=== PATIENT | female | born 1960 | race Caucasian/White ===

== ENCOUNTER 2020-05-16 08:10 | Outpatient (REF) | payer OTHER, SELFPAY ==
[2020-05-16 11:58] LABS: Alanine Aminotransferase 12 U/L (0-31); Anion Gap 15 (12-20); Blood Urea Nitrogen 11 mg/dL (9-16); Calcium 9.2 mg/dL (8.4-10.2); Carbon Dioxide 28 mmol/L (22-29); Chloride 103 mmol/L (96-108); Cholesterol 233 mg/dL; Estimated Glomerular Filt Rate > 60; Glucose Fasting 102 mg/dL (60-99); HDL Cholesterol 61 mg/dL; LDL Cholesterol Calculated 144 mg/dl; Sodium 142 mmol/L (135-145); Triglycerides 143 mg/dL
[2020-05-16 12:23] LABS: Aspartate Amino Transferase 20 U/L (5-31); Vitamin D 25-OH Total 56.5 ng/mL (>30)
== END 2020-05-16 08:11 | disposition home or self-care (01) ==
LOC: HO.HMGCLDS 08:10
PROVIDERS: PCP Internal Medicine; Visit Provider Internal Medicine
DX: E78.5 Hyperlipidemia, unspecified (principal); I10 Essential (primary) hypertension; Z78.0 Asymptomatic menopausal state
CPT/HCPCS: 36415; 80048; 80061; 82306; 84450; 84460

== ENCOUNTER 2020-08-22 09:51 | Outpatient (REF) | payer OTHER, SELFPAY ==
[2020-08-22 12:07] LABS: Alanine Aminotransferase 9 U/L (0-31); Anion Gap 11 (12-20); Aspartate Amino Transferase 18 U/L (5-31); Blood Urea Nitrogen 10 mg/dL (9-16); Calcium 9.4 mg/dL (8.4-10.2); Carbon Dioxide 31 mmol/L (22-29); Chloride 102 mmol/L (96-108); Cholesterol 196 mg/dL; Estimated Glomerular Filt Rate > 60; Glucose Fasting 100 mg/dL (60-99); HDL Cholesterol 56 mg/dL; LDL Cholesterol Calculated 110 mg/dl; Potassium 3.8 mmol/L (3.3-5.1); Sodium 140 mmol/L (135-145); Triglycerides 152 mg/dL
== END 2020-08-22 09:52 | disposition home or self-care (01) ==
LOC: HO.HMGCLDS 09:51
PROVIDERS: PCP Internal Medicine; Visit Provider Internal Medicine
DX: E78.5 Hyperlipidemia, unspecified (principal); I10 Essential (primary) hypertension
CPT/HCPCS: 36415; 80048; 80061; 84450; 84460

== ENCOUNTER 2021-01-18 08:07 | Outpatient (REF) | payer OTHER, SELFPAY ==
--- NOTE | ~2021-01-18 | MM_ITS ---
EXAMINATION: MM SCREENING DIGITAL BREAST TOMOSYNTHESIS, BILATERAL CLINICAL INFORMATION: Screening. Asymptomatic. The lifetime risk of breast cancer based on the Tyrer-Cuzick Model is 4%. COMPARISON: Mammography: 08/27/2016, 08/15/2015, 08/02/2014 TECHNIQUE: Digital breast tomosynthesis is performed in both the craniocaudal and mediolateral oblique views along with computer-aided detection (CAD). Synthesized 2D images are generated from the tomosynthesis. FINDINGS: There are scattered areas of fibroglandular density (ACR BI-RADS breast composition Category b). There are no significant masses, abnormal calcifications, or other abnormalities. Parenchymal pattern is similar to prior studies. MM/MM tomosynthesis screening BI IMPRESSION: No mammographic evidence of malignancy. ASSESSMENT: BI-RADS 1: Negative RECOMMENDATION: Routine annual mammography screening. This patient's information was entered into a reminder system with a target due date for their next mammogram.
--- NOTE | ~2021-01-18 | MM_ITS ---
EXAMINATION: BONE DENSITOMETRY CLINICAL INDICATION: Asymptomatic menopausal state. COMPARISON: None (current study represents initial baseline exam). TECHNIQUE: Using a [employer] DXA System (software version: 13.1) manufactured by [employer], dual-energy x-ray absorptiometry was performed of the lumbar spine and left hip. The images are of good technical quality. Summary results are attached. FINDINGS: AP SPINE L1-L2 (excluding L3 and L4): The data of L1-L4 has been changed to exclude the L3 and L4 vertebral bodies, because degenerative changes at these levels may cause overestimation of lumbar spine density. BMD 1.081 g/cm2, Z-score 0.8, T-score -0.7, normal. LEFT FEMUR, NECK: BMD 0.696 g/cm2, Z-score -1.0, T-score -2.5, osteoporosis. LEFT FEMUR, TOTAL: BMD 0.779 g/cm2, Z-score -0.7, T-score -1.8, osteopenia. IDENTIFIED RISK FACTORS: Height loss, tobacco use (current smoker). Early menopause, secondary osteoporosis. HISTORY OF FRACTURE: None listed. MEDICATIONS: Calcium supplements or multivitamin, vitamin D. MM/XR DEXA axial skeleton IMPRESSION: 1. DIAGNOSIS: Osteoporosis based on the lowest T-score value of -2.5 in the femoral neck applying World Health Organization criteria. 2. 10-YEAR FRACTURE RISK PREDICTION, FRAX: Major osteoporotic fracture (clinical spine, forearm, hip or shoulder) 11.3%. Hip fracture 2.2%. 3. Treatment Recommendations: NOF guidelines recommend consideration for treatment in postmenopausal women and men age 50 and older presenting with the following: -A hip or vertebral (clinical or morphometric) fracture. -T-score less than or equal to -2.5 at the femoral neck or spine after appropriate evaluation to exclude secondary causes. -Low bone mass at the hip or spine and a 10-year fracture probability by FRAX of greater than or equal to 3% for hip fracture or greater than or equal to 20% for major osteoporotic fracture based on the [place] adapted WHO algorithm. 4. Other Recommendations: All treatment decisions require clinical judgment and consideration of individual patient factors, including patient preferences, comorbidities, previous drug use, risk factors not captured in the FRAX model (e.g. frailty, falls, vitamin D deficiency, increased bone turnover, interval significant decline in bone density) and possible under or overestimation of fracture risk by FRAX. Additional medical evaluation for secondary cause of low bone mineral density may be appropriate. FUTURE SCAN RECOMMENDATION: People with diagnosed cases of osteoporosis or at high risk for fracture should have regular bone mineral density tests. For patients eligible for Medicare, routine testing is allowed once every 2 years. The testing frequency can be increased to one year for patients who have rapidly progressing disease, those who are receiving or discontinuing medical therapy to restore bone mass, or have additional risk factors.
== END 2021-01-18 08:08 | disposition home or self-care (01) ==
LOC: HO.MAMMO 08:07
PROVIDERS: Visit Provider Internal Medicine
DX: Z13.820 Encounter for screening for osteoporosis (principal); Z78.0 Asymptomatic menopausal state; Z12.31 Encounter for screening mammogram for malignant neoplasm of breast
CPT/HCPCS: 77063; 77067; 77080

== ENCOUNTER 2021-03-01 08:06 | Outpatient (REF) | payer OTHER, SELFPAY ==
[2021-03-01 11:35] LABS: Alanine Aminotransferase 13 U/L (0-31); Anion Gap 10 (12-20); Aspartate Amino Transferase 21 U/L (5-31); Blood Urea Nitrogen 12 mg/dL (9-16); Calcium 9.2 mg/dL (8.4-10.2); Carbon Dioxide 30 mmol/L (22-29); Chloride 102 mmol/L (96-108); Cholesterol 203 mg/dL; Estimated Glomerular Filt Rate > 60; Glucose Fasting 100 mg/dL (60-99); HDL Cholesterol 55 mg/dL; LDL Cholesterol Calculated 115 mg/dl; Potassium 3.9 mmol/L (3.3-5.1); Sodium 138 mmol/L (135-145); Triglycerides 169 mg/dL
[2021-03-01 12:00] LABS: Vitamin D 25-OH Total 46.4 ng/mL (>30)
[2021-03-03 20:51] LABS: TS Negative Control Passed; TS Panel A 0; TS Panel B 0; TS Positive Control Passed; TSpotTB Negative (Negative)
== END 2021-03-01 08:07 | disposition home or self-care (01) ==
LOC: HO.HMGCLDS 08:06
PROVIDERS: PCP Internal Medicine; Visit Provider Internal Medicine
DX: E78.5 Hyperlipidemia, unspecified (principal); I10 Essential (primary) hypertension; Z78.0 Asymptomatic menopausal state; Z11.1 Encounter for screening for respiratory tuberculosis
CPT/HCPCS: 36415; 80048; 80061; 82306; 84450; 84460; 86481

== ENCOUNTER → 2021-07-10 07:50 | Outpatient (BNVA) | payer OTHER, SELFPAY | PROVIDERS: PCP Internal Medicine; Visit Provider Internal Medicine Endocrinology, Diabetes & Metabolism | DX: M81.0 Age-related osteoporosis without current pathological fracture (principal) | CPT/HCPCS: 99202 ==

== ENCOUNTER 2021-07-28 09:38 | Outpatient (REF) | payer OTHER, SELFPAY ==
[2021-07-28 11:32] LABS: Alanine Aminotransferase 14 U/L (0-31); Anion Gap 14 (12-20); Aspartate Amino Transferase 24 U/L (5-31); Blood Urea Nitrogen 12 mg/dL (9-16); Calcium 9.9 mg/dL (8.4-10.2); Carbon Dioxide 28 mmol/L (22-29); Chloride 100 mmol/L (96-108); Cholesterol 196 mg/dL; Estimated Glomerular Filt Rate > 60; Glucose Fasting 99 mg/dL (60-99); HDL Cholesterol 57 mg/dL; LDL Cholesterol Calculated 123 mg/dl; Phosphorus 4.4 mg/dL (2.7-4.5); Potassium 4.2 mmol/L (3.3-5.1); Sodium 138 mmol/L (135-145); Triglycerides 81 mg/dL
[2021-07-28 11:54] LABS: Vitamin D 25-OH Total 48.4 ng/mL (>30)
[2021-08-09 07:56] LABS: N-Telopeptide 36
[2021-08-09 07:57] LABS: NTXCreaRU 52
== END 2021-07-28 09:39 | disposition home or self-care (01) ==
LOC: HO.HMGCLDS 09:38
PROVIDERS: Absent Provider Internal Medicine Endocrinology, Diabetes & Metabolism; Visit Provider Internal Medicine
DX: M81.0 Age-related osteoporosis without current pathological fracture (principal); E78.5 Hyperlipidemia, unspecified; I10 Essential (primary) hypertension
CPT/HCPCS: 36415; 80048; 80061; 82306; 82523; 84100; 84443; 84450; 84460

== ENCOUNTER 2022-03-12 10:54 | Outpatient (AMB) | payer OTHER, SELFPAY ==
--- NOTE | 2022-03-12 11:40 | MHC.PC.OV ---
Vital Signs 03/12/22 11:42 Height 5 ft 2 in Weight 132 lb BMI 24.1 BP 132/62 Blood Pressure Location Lt brachial Position Sitting Pulse 65 Pulse Source Pulse Oximeter Pulse Oximetry (%) 97 Oxygen Delivery Method Room Air Intake Visit Reasons: Annual PE Intake Note: Pt is here today for her PE Allergies No Known Allergies Allergy (Verified 07/29/23 08:40) Medication List - Last Reconciled 08/30/23 by Windy Frost MD calcium carbonate-vitamin D3 600 mg-5 mcg (200 unit) 1 tab PO DAILY hydrochlorothiazide 25 mg PO DAILY metoprolol tartrate 50 mg PO BID multivitamin 1 tab PO DAILY pravastatin 80 mg PO BEDTIME sertraline 50 mg PO DAILY Tobacco use date assessed: 03/12/22 HPI Annual PE HPI Details 63-year-old lady here today for physical exam. She is is due for her screening mammogram, last done December 2020 , together with her bone density scan which showed presence of osteoporosis in her left femoral neck. Declines to start any medications for osteoporosis. Has been taking only calcium and vitamin-D supplements. States that she has been staying active no history of any fractures. Continues to smoke cigarettes with no desire to quit at present time. Gets lung cancer screening yearly. She has hypertension hyperlipidemia currently stable controlled on present treatment. She had a colonoscopy done by Dr. Ellison in 2015, due for recheck in 2025 [facility] Medical History (Updated 03/18/23 @ 13:06 by Windy Frost MD) Screening for lung cancer Osteoporosis Depression, major, in remission Smoker unmotivated to quit Essential hypertension Dyslipidemia Surgical History History of surgery on arm Hx of colonoscopy History of tubal ligation Family History Father Lymphoma Myocardial infarction HTN (hypertension) Mother Rheumatoid arthritis HTN (hypertension) COPD (chronic obstructive pulmonary disease) Hyperlipidemia Brother Myocardial infarction Depression CVD (cardiovascular disease) Unknown family medical history Son No problems noted. Daughter No problems noted. Family/Other Mental health disorder Social History Housing: House Alcohol intake: current Patient Tobacco Use Status: Current everyday Tobacco user Cigarette Packs Per Day: 0 Cigarettes Per Day: 10 e-Cigarette/Vaping Use: Never Used service: No Current occupational status: employed Cognitive needs: No Hearing needs: No Vision needs: Yes Questionnaire Thrive Questionnaire Date Thrive assessed: 07/31/21 CINDY-7 AMB Questionnaire CINDY-7 Date CINDY - 7 assessed: 07/31/21 Source: Developed by Drs. Joseph Gamez, Anna Downs, Luther Smith and colleagues, with an educational dexter from [email or web address]. Review of Systems Const Denies body aches, Denies fatigue, Denies fever(s), Denies headache(s) and Denies weakness Eyes Details: Has appointment with [facility] for her routine eye exam Denies change in vision, Denies eye discharge and Denies itchy eyes ENT Denies dizziness, Denies headache(s), Denies nasal congestion, Denies nasal discharge and Denies sore throat Card Denies chest pain, Denies lightheadedness, Denies palpitations and Denies dyspnea Resp Denies chest congestion, Denies cough, Denies dyspnea and Denies wheezing GI Denies abdominal pain, Denies change in bowel habits and Denies heartburn Denies urinary frequency, Denies dysuria and Denies urinary urgency Musc Denies back pain, Denies arthralgias, Denies joint swelling, Denies muscle cramps and Denies muscle weakness Skin/Breast Denies lesions and Denies rash Neuro Denies dizziness, Denies headache(s) and Denies weakness Psych Denies abnormal sleep pattern, Denies anxiety, Denies change in appetite, Denies depression and Denies mood swings Endo Denies fatigue, Denies polydipsia, Denies polyuria and Denies palpitations Reyes/Lymph Denies easy bruising Aller/Immun Denies itchy eyes, Denies seasonal rhinorrhea and Denies wheezing Physical exam (Primary Care) Vital Signs: Last Vital Signs Pulse 65 03/12/22 11:42 BP 132/62 03/12/22 11:42 Pulse Ox 97 03/12/22 11:42 Oxygen Delivery Method Room Air 03/12/22 11:42 BMI result Body Mass Index 24.1 Tobacco/Smoking Status: Tobacco use Status Tobacco use date assessed 03/12/22 03/12/22 11:44 Patient Tobacco Use Status Current everyday Tobacco 03/12/22 11:44 e-Cigarette/Vaping Use Never Used 03/12/22 11:44 Are you ready to quit: No Thrive Assessment: Date of Thrive Assessment Date Thrive assessed 07/31/21 03/12/22 11:44 Const Other: Const General:?cooperative, comfortable and no acute distress Orientation/consciousness:?patient oriented x3 Limitations:?no limitations HENMT Ears:?hearing grossly normal bilaterally, external ears normal, TM's normal bilaterally and EAC's normal General nose exam:?Normal external nose present, Normal nasal mucous membranes and turbinates present and No nasal discharge present Mouth:?Normal oral and palatal mucosa present, oropharynx normal and moist mucous membranes Throat:?Yes posterior oropharynx normal Eyes General:?appearance normal, both eyes and all related structures Conjunctivae:?conjunctivae normal Pupils:?Equal, round and reactive pupils present EOM:?EOMs intact bilaterally Neck Neck:?Yes full ROM, Yes no lymphadenopathy and Yes supple Chest Breast/axilla palpation:?normal palpation of the breasts Resp Effort & Inspection:?normal respiratory effort and able to speak in complete sentences Auscultation:?clear to auscultation bilaterally Cardio Rate:?regular rate Rhythm:?regular rhythm Heart sounds:?S1 normal heart sound present and S2 normal heart sound present GI Inspection:?Yes normal to inspection Palpation (GI):?Soft to palpation, nontender and no masses Auscultation:?normal bowel sounds Back/Spine/Pelvis Cervical Spine:?cervical ROM normal Thoracic/Lumbar Spine:?thoracic and lumbar spine normal to inspection Skin General skin exam:?no rashes or lesions noted Neuro General:?patient oriented x3, gait normal, tone normal, moves all extremities, Normal light touch and pain sensation and no focal motor deficits Cranial nerves:?Yes Equal, round and reactive pupils present Cognition (Neuro):?normal cognition Gait exam (Neuro):?Normal gait present Motor exam (neuro):?5/5 motor strength present throughout Extrem General:?Yes normal to inspection, Yes full ROM, Yes no joint enlargement, Yes no pedal edema, Yes no calf tenderness and Yes normal gait Psych Appearance:?grossly normal Mental Status:?mental status grossly normal Speech and movement:?Normal speech and movement present Affect:?normal affect Attitude:?cooperative Thought process:?Normal thought process present Thought content:?Normal thought content present Assessment and Plan Assessment & Plan (1) Annual visit for general adult medical examination with abnormal findings: Code(s): Z00.01 - Encounter for general adult medical examination with abnormal findings Plan: Fasting labs ordered, advised to do regular dental cleaning every 6 months, get IX checked every 2 years at least and reinforced importance of following healthy diet and doing regular weight-bearing exercise, taking calcium and vitamin-D 3 supplements. Reminded that she is due for her screening mammogram and bone density again, but patient does not want to start any medications for treatment of osteoporosis at present time. She is up-to-date with her screening colonoscopy due again in 2025, . She is up-to-date with her COVID vaccines, gets yearly flu shot and up-to-date with her Tdap. Reminded to get her shingles vaccination. declines pelvic exam and Pap smear (2) Osteoporosis: Code(s): M81.0 - Age-related osteoporosis without current pathological fracture (3) Depression, major, in remission: Code(s): F32.5 - Major depressive disorder, single episode, in full remission (4) Smoker unmotivated to quit: Code(s): F17.200 - Nicotine dependence, unspecified, uncomplicated Plan: Patient strongly advised to stop smoking, as smoking damages blood vessels, degenerative of joints and spine, damage to lungs and heart., predisposes to developing certain cancers like lung, breast, bladder, colon. Recommended to try decreasing cigarette use by 1-2 cigarettes a day. Advised to monitor what triggers are for smoking so that this can be discussed on the next office visit. We can discuss different options to quit smoking when ready. (5) Essential hypertension: Code(s): I10 - Essential (primary) hypertension Plan: Blood pressure goal is less than 130/80. Continue metoprolol tartrate 50 mg 1 tablet twice a day and hydrochlorothiazide 25 mg daily. Reinforced importance of following a low sodium diet, getting regular exercise, and lowering stress levels. (6) Dyslipidemia: Code(s): E78.5 - Hyperlipidemia, unspecified Plan: Fasting lipid panel ordered, currently taking pravastatin 80 mg daily, reinforced importance of following a low-cholesterol diet and staying active get regular exercise least 30 minutes of cardio 3 to 4 times a week Coding Level of Care Code Est Pt Prev Care 40-64y(70652) Diagnoses Annual visit for general adult medical examination with abnormal findings Z00.01 Osteoporosis M81.0 Depression, major, in remission F32.5 Smoker unmotivated to quit F17.200 Essential hypertension I10 Dyslipidemia E78.5
[2022-03-12 11:42] VITALS: BP 132/62; PULSE 65; O2SAT 97; BMI 24.1
== END 2022-03-12 12:16 | disposition home or self-care (01) ==
LOC: HO.HMGC 10:54
PROVIDERS: PCP Internal Medicine; Visit Provider Internal Medicine
DX: Z00.01 Encounter for general adult medical examination with abnormal findings (principal); M81.0 Age-related osteoporosis without current pathological fracture; F32.5 Major depressive disorder, single episode, in full remission; F17.200 Nicotine dependence, unspecified, uncomplicated; I10 Essential (primary) hypertension; E78.5 Hyperlipidemia, unspecified
CPT/HCPCS: 99499

== ENCOUNTER 2022-06-18 13:03 | Outpatient (REF) | payer OTHER, SELFPAY ==
--- NOTE | ~2022-06-18 | MM_ITS ---
EXAMINATION: MM SCREENING DIGITAL BREAST TOMOSYNTHESIS, BILATERAL CLINICAL INFORMATION: Screening. Asymptomatic. The lifetime risk of breast cancer based on the Tyrer-Cuzick Model is 4.2%. COMPARISON: Mammography: January 18, 2021 and studies dating back to August 15, 2015 TECHNIQUE: Digital breast tomosynthesis is performed in both the craniocaudal and mediolateral oblique views along with computer-aided detection (CAD). Synthesized 2D images are generated from the tomosynthesis. FINDINGS: There are scattered areas of fibroglandular density (ACR BI-RADS breast composition Category b). There are no significant masses, abnormal calcifications, or other abnormalities. MM/MM tomosynthesis screening BI IMPRESSION: No significant changes from prior exam. ASSESSMENT: BI-RADS 1: Negative RECOMMENDATION: Routine annual mammography screening. This patient's information was entered into a reminder system with a target due date for their next mammogram.
== END 2022-06-18 13:04 | disposition home or self-care (01) ==
LOC: HO.MAMMO 13:03
PROVIDERS: PCP Internal Medicine; Visit Provider Internal Medicine
DX: Z12.31 Encounter for screening mammogram for malignant neoplasm of breast (principal)
CPT/HCPCS: 77063; 77067

== ENCOUNTER 2022-06-19 06:23 | Outpatient (REF) | payer OTHER, SELFPAY ==
[2022-06-19 11:40] LABS: Alanine Aminotransferase 12 U/L (0-31); Anion Gap 15 (12-20); Aspartate Amino Transferase 22 U/L (5-31); Blood Urea Nitrogen 11 mg/dL (9-16); Calcium 9.4 mg/dL (8.4-10.2); Carbon Dioxide 27 mmol/L (22-29); Chloride 103 mmol/L (96-108); Cholesterol 206 mg/dL; Estimated Glomerular Filt Rate > 60; Glucose Fasting 118 mg/dL (60-99); HDL Cholesterol 54 mg/dL; LDL Cholesterol Calculated 123 mg/dl; Sodium 141 mmol/L (135-145); Triglycerides 149 mg/dL
== END 2022-06-19 06:24 | disposition home or self-care (01) ==
LOC: HO.HMGCLDS 06:23
PROVIDERS: PCP Internal Medicine; Visit Provider Internal Medicine
DX: E78.5 Hyperlipidemia, unspecified (principal); I10 Essential (primary) hypertension
CPT/HCPCS: 36415; 80048; 80061; 84450; 84460

== ENCOUNTER → 2022-08-01 08:52 | Outpatient (BNVA) | payer OTHER, SELFPAY | PROVIDERS: PCP Internal Medicine; Visit Provider Internal Medicine Endocrinology, Diabetes & Metabolism | DX: M81.0 Age-related osteoporosis without current pathological fracture (principal) | CPT/HCPCS: 99212 ==

== ENCOUNTER 2023-03-18 11:57 | Outpatient (AMB) | payer OTHER, SELFPAY ==
[2023-03-18 12:29] VITALS: BP 132/68; PULSE 80; O2SAT 99; BMI 22.2
--- NOTE | 2023-03-18 12:29 | MHC.PC.OV ---
Vital Signs 03/18/23 12:29 Height 5 ft 3.98 in Weight 129 lb 6 oz BMI 22.2 BP 132/68 Blood Pressure Location Rt brachial Position Sitting Pulse 80 Pulse Source Pulse Oximeter Pulse Oximetry (%) 99 Oxygen Delivery Method Room Air Intake Visit Reasons: Annual PE Intake Note: pt is here for her Annual PE Allergies No Known Allergies Allergy (Verified 03/18/23 12:43) Medication List - Last Reconciled 03/18/23 by Windy Frost MD calcium carbonate-vitamin D3 600 mg-5 mcg (200 unit) 1 tab PO DAILY hydrochlorothiazide 25 mg PO DAILY metoprolol tartrate 50 mg PO BID multivitamin 1 tab PO DAILY pravastatin 80 mg PO BEDTIME sertraline 50 mg PO DAILY Tobacco use date assessed: 03/18/23 Dental Screening Dental Screen Date: 03/18/23 Did you have a dental visit in the last 12 months?: Yes Did you have a dental problem in the last 6 months where you did not have access to dental care?: No Was dental information given to patient?: Patient has dentist HPI Annual PE HPI Details 62-year-old lady here today for her physical exam. She has hypertension, currently stable and controlled on present medications which includes hydrochlorothiazide and metoprolol tartrate. She currently takes pravastatin for hyperlipidemia and sertraline for depression which is currently in remission. Continues to smoke cigarettes, with no desire to quit at present time, but has been cutting back on her smoking. She is up-to-date with her screening mammogram, done earlier this year, and had a last bone density scan done in 2020 which showed presence of normal bone density in lumbar spine, osteopenia in left femur and osteoporosis in her left femoral neck. Currently being seen by endocrine clinic, tried alendronate which gave her severe muscle pain. She has an appointment to repeat another bone density scan in follow-up with Dr. Mensah discuss other treatment options. Up-to-date with her colon cancer screening, done by Dr. Ellison in 2015, due again in 2025. She has had her COVID vaccine booster and flu shot, but has not yet had her Shingrix vaccination. Last colonoscopy was done by Dr. Ellison in 2015, due again in 2025. Her last cervical cancer screening was done in 2019 with negative findings, due again in 2024. [facility] Medical History (Updated 03/18/23 @ 13:06 by Windy Frost MD) Screening for lung cancer Osteoporosis Depression, major, in remission Smoker unmotivated to quit Essential hypertension Dyslipidemia Surgical History History of surgery on arm Hx of colonoscopy History of tubal ligation Family History Father Lymphoma Myocardial infarction HTN (hypertension) Mother Rheumatoid arthritis HTN (hypertension) COPD (chronic obstructive pulmonary disease) Hyperlipidemia Brother Myocardial infarction Depression CVD (cardiovascular disease) Unknown family medical history Son No problems noted. Daughter No problems noted. Family/Other Mental health disorder Social History Housing: House Alcohol intake: current Patient Tobacco Use Status: Current everyday Tobacco user Cigarette Packs Per Day: 0 Cigarettes Per Day: 10 e-Cigarette/Vaping Use: Never Used service: No Current occupational status: employed Cognitive needs: No Hearing needs: No Vision needs: Yes Female Reproductive History Menstrual Date of Mammogram: 06/18/22 Date of last Bone Density Screenin01/18/21 Questionnaire PHQ-9 Over the last 2 weeks, how often have you been bothered by any of the following problems? 1. Little interest or pleasure in doing things: not at all 2. Feeling down, depressed, or hopeless: not at all 3. Trouble falling or staying asleep, or sleeping too much: not at all 4. Feeling tired or having little energy: not at all 5. Poor appetite or overeating: not at all 6. Feeling bad about yourself - or that you are a failure or have let yourself or your family down: not at all 7. Trouble concentrating on things, such as reading the newspaper or watching television: not at all 8. Moving or speaking so slowly that other people could have noticed. Or the opposite - being so fidgety or restless that you have been moving around a lot more than usual: not at all 9. Thoughts that you would be better off or of hurting yourself in some way: not at all Total score: 0 Depression Screening Interpretation: Negative Depression Screening Done: Yes 60408 - PHQ-9 Billing: Yes Source: Developed by Drs. Joseph Gamez, Luther Wills and colleagues, with an educational dexter from [employer]. Thrive Questionnaire Date Thrive assessed: 03/18/23 I am a: Patient What is your living situation today?: I have a steady place to live Within the past 12 months, did the food you bought not last and you didn't have the money to get more?: Never true Within the past 12 months, did you worry whether your food would run out before you got money to buy more?: Never true Do you have trouble paying for medicines?: No Do you have trouble getting transportation to medical appointments?: No Do you have trouble paying your heating and electricity bill?: No Do you have trouble taking care of your child, family member or friend?: No Do you have trouble with day-to-day activities such as bathing, preparing meals, shopping, managing finances, etc.?: No Are you currently unemployed and looking for a job?: No Are you interested in more education?: No Please select the resources that you would like help with: None AUDIT C Alcohol Use Questionnaire (AUDIT-C) 1. How often do you have a drink containing alcohol?: 2-4 times a month 2. How many drinks containing alcohol do you have on a typical day when you are drinking?: 1 or 2 3. How often do you have six or more drinks on one occasion?: Never Total Score: 2 CINDY-7 AMB Questionnaire CINDY-7 Date CINDY - 7 assessed: 03/18/23 Feeling nervous, anxious, or on edge: 0 = Not at all Not being able to stop or control worryin = Not at all Worrying too much about different things: 0 = Not at all Trouble relaxin = Not at all Being so restless that it is hard to sit still: 0 = Not at all Becoming easily annoyed or irritable: 0 = Not at all Feeling afraid as if something awful might happen: 0 = Not at all Total CINDY-7 score (0-4 normal; 5-9 mild; 10-14 moderate; 15-21 severe): 0 Source: Developed by Drs. Joseph Gamez, Luther Wills and colleagues, with an educational dexter from [employer]. CINDY-7 Assessment Billing CINDY-7 Assessment Tool: CINDY-7 Assessment 79706 Review of Systems Const Denies body aches, Denies fatigue, Denies fever(s), Denies headache(s) and Denies weakness Eyes Details: Has appointment with [place] for her routine eye exam Denies change in vision, Denies eye discharge and Denies itchy eyes ENT Denies dizziness, Denies headache(s), Denies nasal congestion, Denies nasal discharge and Denies sore throat Card Denies chest pain, Denies lightheadedness, Denies palpitations and Denies dyspnea Resp Denies chest congestion, Denies cough, Denies dyspnea and Denies wheezing GI Denies abdominal pain, Denies change in bowel habits and Denies heartburn Denies urinary frequency, Denies dysuria and Denies urinary urgency Musc Denies back pain, Denies arthralgias, Denies joint swelling, Denies muscle cramps and Denies muscle weakness Skin/Breast Denies lesions and Denies rash Neuro Denies dizziness, Denies headache(s) and Denies weakness Psych Denies abnormal sleep pattern, Denies anxiety, Denies change in appetite, Denies depression and Denies mood swings Endo Denies fatigue, Denies polydipsia, Denies polyuria and Denies palpitations Reyes/Lymph Denies easy bruising Aller/Immun Denies itchy eyes, Denies seasonal rhinorrhea and Denies wheezing Physical exam (Primary Care) Vital Signs: Last Vital Signs Pulse 80 03/18/23 12:29 BP 132/68 03/18/23 12:29 Pulse Ox 99 03/18/23 12:29 Oxygen Delivery Method Room Air 03/18/23 12:29 BMI result Body Mass Index 22.2 Tobacco/Smoking Status: Tobacco use Status Tobacco use date assessed 03/18/23 03/18/23 12:31 Patient Tobacco Use Status Current everyday Tobacco 03/18/23 12:29 e-Cigarette/Vaping Use Never Used 03/18/23 12:29 Are you ready to quit: No PHQ-9: PHQ-9 Score PHQ-9: Total score 0 03/18/23 13:00 Depression Screening Interpretation: Negative Thrive Assessment: Date of Thrive Assessment Date Thrive assessed 03/18/23 03/18/23 13:00 Const Other: Const General:?cooperative, comfortable and no acute distress Orientation/consciousness:?patient oriented x3 Limitations:?no limitations HENMT Ears:?hearing grossly normal bilaterally, external ears normal, TM's normal bilaterally and EAC's normal General nose exam:?Normal external nose present, Normal nasal mucous membranes and turbinates present and No nasal discharge present Mouth:?Normal oral and palatal mucosa present, oropharynx normal and moist mucous membranes Throat:?Yes posterior oropharynx normal Eyes General:?appearance normal, both eyes and all related structures Conjunctivae:?conjunctivae normal Pupils:?Equal, round and reactive pupils present EOM:?EOMs intact bilaterally Neck Neck:?Yes full ROM, Yes no lymphadenopathy and Yes supple Chest Breast/axilla palpation:?normal palpation of the breasts Resp Effort & Inspection:?normal respiratory effort and able to speak in complete sentences Auscultation:?clear to auscultation bilaterally Cardio Rate:?regular rate Rhythm:?regular rhythm Heart sounds:?S1 normal heart sound present and S2 normal heart sound present GI Inspection:?Yes normal to inspection Palpation (GI):?Soft to palpation, nontender and no masses Auscultation:?normal bowel sounds Back/Spine/Pelvis Cervical Spine:?cervical ROM normal Thoracic/Lumbar Spine:?thoracic and lumbar spine normal to inspection Skin General skin exam:?no rashes or lesions noted Neuro General:?patient oriented x3, gait normal, tone normal, moves all extremities, Normal light touch and pain sensation and no focal motor deficits Cranial nerves:?Yes Equal, round and reactive pupils present Cognition (Neuro):?normal cognition Gait exam (Neuro):?Normal gait present Motor exam (neuro):?5/5 motor strength present throughout Extrem General:?Yes normal to inspection, Yes full ROM, Yes no joint enlargement, Yes no pedal edema, Yes no calf tenderness and Yes normal gait Psych Appearance:?grossly normal Mental Status:?mental status grossly normal Speech and movement:?Normal speech and movement present Affect:?normal affect Attitude:?cooperative Thought process:?Normal thought process present Thought content:?Normal thought content present Assessment and Plan Assessment & Plan (1) Screening for lung cancer: Code(s): Z12.2 - Encounter for screening for malignant neoplasm of respiratory organs Plan: Referred for lung cancer screening with low-dose CT scan. Patient still not ready to quit smoking at present (2) Osteoporosis: Code(s): M81.0 - Age-related osteoporosis without current pathological fracture Qualifiers: Osteoporosis type: age-related Presence of current pathological fracture: without current pathological fracture Qualified Code(s): M81.0 - Age-related osteoporosis without current pathological fracture Plan: Has tried alendronate but unable to tolerated due to severe muscle pain. Has a repeat bone density scan ordered by Dr. Mensah scheduled for next year, and to follow-up with him after scan done to discuss further treatment options (3) Depression, major, in remission: Code(s): F32.5 - Major depressive disorder, single episode, in full remission Plan: Stable and controlled on sertraline 50 mg daily (4) Smoker unmotivated to quit: Code(s): F17.200 - Nicotine dependence, unspecified, uncomplicated Plan: Patient strongly advised to stop smoking, as smoking damages blood vessels, degenerative of joints and spine, damage to lungs and heart., predisposes to developing certain cancers like lung, breast, bladder, colon. Recommended to try decreasing cigarette use by 1-2 cigarettes a day. Advised to monitor what triggers are for smoking so that this can be discussed on the next office visit. We can discuss different options to quit smoking when ready. (5) Essential hypertension: Code(s): I10 - Essential (primary) hypertension Plan: Blood pressure goal is less than 130/80. Continue with metoprolol tartrate 50 mg 1 tablet twice a day and hydrochlorothiazide 25 mg daily. Reinforced importance of following a low sodium diet, getting regular exercise, and lowering stress levels. (6) Dyslipidemia: Code(s): E78.5 - Hyperlipidemia, unspecified Plan: Fasting lipid panel ordered. In the meantime continue with adhering to a low-cholesterol diet getting regular exercise continue taking pravastatin 80 mg at bedtime (7) Annual visit for general adult medical examination with abnormal findings: Code(s): Z00.01 - Encounter for general adult medical examination with abnormal findings Plan: Will check appropriate labs. Has an appointment [facility] for her routine eye exam, get it at least every 2 years. . Take adequate calcium in diet and vitamin-D 3 at 2000 IU per cap once a day, in addition to weight-bearing exercises to help maintain good muscle tone and weight control. Instructed to do self-breast exam, and up-to-date with her yearly mammogram, has an appointment for a repeat bone density scan scheduled for early next year and is currently being followed by endocrine for osteoporosis.. She is up-to-date with her flu and COVID booster and Tdap, reminded to get her Shingrix vaccination. Up-to-date with her screening colonoscopy due again in 2025 Orders: Orders Basic Metabolic Panel Fasting Today E78.5 - Hyperlipidemia, unspecified, E89.40 - Asymptomatic postprocedural ovarian failure, F17.200 - Nicotine dependence, unspecified, uncomplicated, F32.5 - Major depressive disorder, single episode, in full remission, I10 - Essential (primary) hypertension, M81.0 - Age-related osteoporosis without current pathological fracture Alanine Aminotransferase Today E78.5 - Hyperlipidemia, unspecified, E89.40 - Asymptomatic postprocedural ovarian failure, F17.200 - Nicotine dependence, unspecified, uncomplicated, F32.5 - Major depressive disorder, single episode, in full remission, I10 - Essential (primary) hypertension, M81.0 - Age-related osteoporosis without current pathological fracture Aspartate Amino Transferase Today E78.5 - Hyperlipidemia, unspecified, E89.40 - Asymptomatic postprocedural ovarian failure, F17.200 - Nicotine dependence, unspecified, uncomplicated, F32.5 - Major depressive disorder, single episode, in full remission, I10 - Essential (primary) hypertension, M81.0 - Age-related osteoporosis without current pathological fracture Lipid Panel Today E78.5 - Hyperlipidemia, unspecified, E89.40 - Asymptomatic postprocedural ovarian failure, F17.200 - Nicotine dependence, unspecified, uncomplicated, F32.5 - Major depressive disorder, single episode, in full remission, I10 - Essential (primary) hypertension, M81.0 - Age-related osteoporosis without current pathological fracture Vitamin D 25-OH Total Today E78.5 - Hyperlipidemia, unspecified, E89.40 - Asymptomatic postprocedural ovarian failure, F17.200 - Nicotine dependence, unspecified, uncomplicated, F32.5 - Major depressive disorder, single episode, in full remission, I10 - Essential (primary) hypertension, M81.0 - Age-related osteoporosis without current pathological fracture Referrals Thoracic Surgery Referral Z12.2 - Encounter for screening for malignant neoplasm of respiratory organs Coding Level of Care Code Est Pt Prev Care 40-64y([id number]) Diagnoses Screening for lung cancer Z12.2 Age-related osteoporosis without current pathological fracture M81.0 Osteoporosis type: age-related Presence of current pathological fracture: without current pathological fracture Depression, major, in remission F32.5 Smoker unmotivated to quit F17.200 Essential hypertension I10 Dyslipidemia E78.5 Annual visit for general adult medical examination with abnormal findings Z00.01 Additional Codes CINDY-7 Assessment Billing - CINDY-7 Assessment Tool: CINDY-7 Assessment 44790 ([id number])
== END 2023-03-18 13:03 | disposition home or self-care (01) ==
PROVIDERS: Visit Provider Internal Medicine
DX: Z00.00 Encounter for general adult medical examination without abnormal findings (principal); Z12.2 Encounter for screening for malignant neoplasm of respiratory organs; M81.0 Age-related osteoporosis without current pathological fracture; F32.5 Major depressive disorder, single episode, in full remission; F17.210 Nicotine dependence, cigarettes, uncomplicated; I10 Essential (primary) hypertension; E78.5 Hyperlipidemia, unspecified
CPT/HCPCS: 99396

== ENCOUNTER 2023-04-03 06:54 | Outpatient (REF) | payer OTHER, SELFPAY ==
[2023-04-03 12:09] LABS: Alanine Aminotransferase 11 U/L (0-31); Anion Gap 15 (12-20); Aspartate Amino Transferase 24 U/L (5-31); Blood Urea Nitrogen 12 mg/dL (9-16); Calcium 9.5 mg/dL (8.4-10.2); Carbon Dioxide 27 mmol/L (22-29); Chloride 101 mmol/L (96-108); Cholesterol 197 mg/dL (<200); Estimated Glomerular Filt Rate > 60; Glucose Fasting 112 mg/dL (60-99); HDL Cholesterol 53 mg/dL (>40); LDL Cholesterol Calculated 109 mg/dL (<100); Potassium 3.3 mmol/L (3.3-5.1); Sodium 140 mmol/L (135-145); Triglycerides 179 mg/dL (<150)
[2023-04-03 12:33] LABS: Vitamin D 25-OH Total 88.7 ng/mL (>30)
== END 2023-04-03 06:55 | disposition home or self-care (01) ==
LOC: HO.HMGCLDS 06:54
PROVIDERS: PCP Internal Medicine; Visit Provider Internal Medicine
DX: M81.0 Age-related osteoporosis without current pathological fracture (principal); E89.40 Asymptomatic postprocedural ovarian failure; F32.5 Major depressive disorder, single episode, in full remission; E78.5 Hyperlipidemia, unspecified; I10 Essential (primary) hypertension; F17.200 Nicotine dependence, unspecified, uncomplicated
CPT/HCPCS: 36415; 80048; 80061; 82306; 84450; 84460

== ENCOUNTER 2023-06-26 09:38 | Outpatient (REF) | payer OTHER, SELFPAY ==
--- NOTE | ~2023-06-26 | MM_ITS ---
EXAMINATION: BONE DENSITOMETRY CLINICAL INDICATION: Age-related osteoporosis without current pathological fracture. COMPARISON: Baseline BD dated 01/18/2021. TECHNIQUE: Using a [employer] DXA System (software version: 13.1) manufactured by [employer], dual-energy x-ray absorptiometry was performed of the lumbar spine and left hip. The images are of good technical quality. Summary results are attached. FINDINGS: LEFT FEMUR, NECK: Current: BMD 0.744 g/cm2, Z-score -0.6, T-score -2.1, osteopenia. Baseline: BMD 0.696 g/cm2. LEFT FEMUR, TOTAL: Current: BMD 0.851 g/cm2, Z-score 0.0, T-score -1.2, osteopenia, 9.2% increase from baseline (<5% change is not significant). Baseline: BMD 0.779 g/cm2. AP SPINE L1-L4: Current: BMD 1.172 g/cm2, Z-score 1.6, T-score -0.1, normal, 1.3% decrease from baseline (<5% change is not significant). Baseline: BMD 1.188 g/cm2. IDENTIFIED RISK FACTORS: Early menopause, alcohol (3 or more units per day), osteoporosis, tobacco use (current smoker), secondary osteoporosis. HISTORY OF FRACTURE: None listed. MEDICATIONS: None listed. MM/XR DEXA axial skeleton IMPRESSION: 1. DIAGNOSIS: Osteopenia based on the lowest T-score value of -2.1 in the femoral neck applying World Health Organization criteria. 2. 10-YEAR FRACTURE RISK PREDICTION, FRAX: Major osteoporotic fracture (clinical spine, forearm, hip or shoulder) 13.6%. Hip fracture 4.3%. 3. Treatment Recommendations: NOF guidelines recommend consideration for treatment in postmenopausal women and men age 50 and older presenting with the following: -A hip or vertebral (clinical or morphometric) fracture. -T-score less than or equal to -2.5 at the femoral neck or spine after appropriate evaluation to exclude secondary causes. -Low bone mass at the hip or spine and a 10-year fracture probability by FRAX of greater than or equal to 3% for hip fracture or greater than or equal to 20% for major osteoporotic fracture based on the [place] adapted WHO algorithm. 4. Other Recommendations: All treatment decisions require clinical judgment and consideration of individual patient factors, including patient preferences, comorbidities, previous drug use, risk factors not captured in the FRAX model (e.g. frailty, falls, vitamin D deficiency, increased bone turnover, interval significant decline in bone density) and possible under or overestimation of fracture risk by FRAX. Additional medical evaluation for secondary cause of low bone mineral density may be appropriate. FUTURE SCAN RECOMMENDATION: People with diagnosed cases of osteoporosis or at high risk for fracture should have regular bone mineral density tests. For patients eligible for Medicare, routine testing is allowed once every 2 years. The testing frequency can be increased to one year for patients who have rapidly progressing disease, those who are receiving or discontinuing medical therapy to restore bone mass, or have additional risk factors.
== END 2023-06-26 09:39 | disposition home or self-care (01) ==
LOC: HO.MAMMO 09:38
PROVIDERS: PCP Internal Medicine; Visit Provider Internal Medicine Endocrinology, Diabetes & Metabolism
DX: Z12.31 Encounter for screening mammogram for malignant neoplasm of breast (principal); Z13.820 Encounter for screening for osteoporosis; Z78.0 Asymptomatic menopausal state; M81.0 Age-related osteoporosis without current pathological fracture
CPT/HCPCS: 77063; 77067; 77080

== ENCOUNTER → 2023-06-26 10:30 | Outpatient (BNV) | payer OTHER, SELFPAY | PROVIDERS: PCP Internal Medicine; Visit Provider Radiology Diagnostic Radiology | DX: Z12.31 Encounter for screening mammogram for malignant neoplasm of breast (principal) | CPT/HCPCS: 77063; 77067 ==

== ENCOUNTER 2023-07-04 08:17 | Outpatient (REF) | payer OTHER, SELFPAY ==
--- NOTE | ~2023-07-04 | MM_ITS ---
EXAMINATION: LVA MORPHOMETRY CLINICAL INDICATION: Age-related osteoporosis without current pathological fracture. MEDICATIONS: None listed. COMPARISON: DEXA exam of 06/26/2023. TECHNIQUE: Vertebral fracture assessment was performed using the [employer] DXA system (software version: 14.10 manufactured by [employer]. Evaluation of the thoracolumbar spine from T4 through L4 was performed. Image quality is good. FINDINGS: No significant compression fracture is identified on this scan. On DEXA exam dated 06/26/2023, the patient's BD falls into the osteopenic category based on the lowest T-score value of -2.1 in the femur neck. RECOMMENDATIONS: 1. All patients should ensure an adequate intake of dietary calcium (1200 mg/d) and vitamin D (400-800 IU/d). 2. Treatment Recommendations: NOF guidelines recommend consideration for treatment in postmenopausal women and men age 50 and older presenting with the following: -A hip or vertebral (clinical or morphometric) fracture. -T-score less than or equal to -2.5 at the femoral neck or spine after appropriate evaluation to exclude secondary causes. -Low bone mass at the hip or spine and a 10-year fracture probability by FRAX of greater than or equal to 3% for hip fracture or greater than or equal to 20% for major osteoporotic fracture based on the [place] adapted WHO algorithm. 3. Effective therapies are now available in the form of bisphosphonates, (alendronate, ibandronate, risedronate, zoledronic acid), antiresorptive agents (calcitonin, estrogen+progesterone and raloxifene), anabolic agent (teriparatide, abaloparatide), and RANKL inhibitor (denosumab, romosozumab). These therapies may reduce vertebral, hip and other fractures by up to 50%. FOLLOW-UP: People with diagnosed cases of osteoporosis, high risk for fracture, or current vertebral fractures should have regular bone mineral density tests. The frequency of follow-up vertebral fracture assessment tests should be determined based on clinical circumstances. Often times, testing frequency will be based on rapidly progressing disease, or the addition or elimination of therapy to treat the disease.
== END 2023-07-04 08:18 | disposition home or self-care (01) ==
LOC: HO.MAMMO 08:17
PROVIDERS: Visit Provider Internal Medicine Endocrinology, Diabetes & Metabolism
DX: M81.0 Age-related osteoporosis without current pathological fracture (principal)
CPT/HCPCS: 77081; 77086

== ENCOUNTER 2023-07-29 08:30 | Outpatient (AMB) | payer OTHER, SELFPAY ==
--- NOTE | 2023-07-29 08:31 | MHC.OFFVIS ---
Intake Vital Signs 07/29/23 08:32 Height 5 ft 3.98 in Weight 130 lb 15.273 oz BMI 22.5 BP 136/64 Blood Pressure Location Lt brachial Position Sitting Pulse 63 Pulse Source Pulse Oximeter Intake Visit Reasons: Osteoporosis-confirmed Intake Note: Patient presents today for Osteoporosis follow up, last DEXA was on 07/04/2023. 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 First diagnosed in 2019. Received treatment in the past with alendronate X2 weeks , from 02/2020. Tolerated poorly with leg cramps No history of pathologic fracture or ONJ. Has servings of dietary calcium per day in the form of milk, cheese . Takes Calcium supplement 1200 mg mg daily in divided doses. Takes 400 IU of Vitamin D daily. Denies ever using PPI, anticoagulant, antiepileptic or glucocorticoid medication. Does weight bearing exercise days per week in the form of job lifting magazines . 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 UTD on dental cleanings and sees dentist every 6 months. No planned upcoming dental work or extractions. DXA dated 01/18/21 : Tscore-2.5 L Femoral neck Labs: [facility] Medical History (Updated 03/18/23 @ 13:06 by Windy Frost MD) Screening for lung cancer Osteoporosis Depression, major, in remission Smoker unmotivated to quit Essential hypertension Dyslipidemia Surgical History History of surgery on arm Hx of colonoscopy History of tubal ligation Family History Father Lymphoma Myocardial infarction HTN (hypertension) Mother Rheumatoid arthritis HTN (hypertension) COPD (chronic obstructive pulmonary disease) Hyperlipidemia Brother Myocardial infarction Depression CVD (cardiovascular disease) Unknown family medical history Son No problems noted. Daughter No problems noted. Family/Other Mental health disorder Social History Housing: House Alcohol intake: current Patient Tobacco Use Status: Current everyday Tobacco user Cigarette Packs Per Day: 0 Cigarettes Per Day: 10 e-Cigarette/Vaping Use: Never Used service: No Current occupational status: employed Cognitive needs: No Hearing needs: No Vision needs: Yes Physical Exam Vital Signs: Last Vital Signs Pulse 63 07/29/23 08:32 BP 136/64 07/29/23 08:32 BMI result Body Mass Index 22.5 Assessment & Plan Assessment & Plan (1) Osteoporosis: Code(s): M81.0 - Age-related osteoporosis without current pathological fracture Qualifiers: Osteoporosis type: age-related Presence of current pathological fracture: without current pathological fracture Qualified Code(s): M81.0 - Age-related osteoporosis without current pathological fracture Plan: This is a 61-year-old white female with a history of osteoporosis on DEXA. Secondary causes have been ruled out. She had a brief trial of a bisphosphonate with side effects. . Recent DEXA bone density shows stability without the presence of osteoporosis The plan is to continue with the calcium and vitamin-D supplementation. At this point, patient returned to the care of her primary care provider who can order a DEXA bone density about 2 years time. Should her DEXA bone density progressed to osteoporosis, she can either be rechallenged on oral bisphosphonate or intravenous bisphosphonate by her primary care provider or sent back to endocrinology . Coding Level of Care Code Est Pt Level 3 (35730) Diagnoses Age-related osteoporosis without current pathological fracture M81.0 Osteoporosis type: age-related Presence of current pathological fracture: without current pathological fracture
[2023-07-29 08:32] VITALS: BP 136/64; PULSE 63; BMI 22.5
== END 2023-07-29 09:08 | disposition home or self-care (01) ==
PROVIDERS: PCP Internal Medicine; Visit Provider Internal Medicine Endocrinology, Diabetes & Metabolism
DX: M81.0 Age-related osteoporosis without current pathological fracture (principal)
CPT/HCPCS: 99213

== ENCOUNTER → 2023-07-29 08:30 | Outpatient (BNVA) | payer OTHER, SELFPAY | PROVIDERS: PCP Internal Medicine; Visit Provider Internal Medicine Endocrinology, Diabetes & Metabolism | DX: M81.0 Age-related osteoporosis without current pathological fracture (principal) | CPT/HCPCS: 99212 ==

== ENCOUNTER 2024-03-26 10:50 | Outpatient (AMB) | payer OTHER, SELFPAY ==
--- NOTE | 2024-03-26 10:48 | A.OFFPC_ITS ---
Intake Visit Reasons: cholesterol, andriod Allergies No Known Allergies Allergy (Verified 03/26/24 11:24) Medication List - Last Reconciled 03/26/24 by Windy Frost MD calcium carbonate-vitamin D3 600 mg-5 mcg (200 unit) 1 tab PO DAILY hydrochlorothiazide 25 mg PO DAILY metoprolol tartrate 50 mg PO BID multivitamin 1 tab PO DAILY pravastatin 80 mg PO BEDTIME sertraline 50 mg PO DAILY Tobacco use date assessed: 03/26/24 Dental Screening Dental Screen Date: 03/26/24 Did you have a dental visit in the last 12 months?: No Did you have a dental problem in the last 6 months where you did not have access to dental care?: No Was dental information given to patient?: Patient declined HPI cholesterol, andriod HPI Details The patient is a 63-year-old female presenting with a follow-up on laboratory results and medication management. Her medical history is significant for hyperlipidemia, hypertension, and depression. She recently moved to [place] and had recent fasting labs drawn at her local hospital with copy of results faxed to us. Her cholesterol levels have improved compared to previous measurements, with a total cholesterol level of 207 mg/dL, triglycerides at 128 mg/dL, LDL at 119 mg/dL, and HDL at 62 mg/dL. Electrolyte levels, kidney function, fasting glucose and calcium levels are within normal limits. She is currently taking Pravastatin 80 mg, metoprolol, hydrochlorothiazide, calcium supplements, sertraline, and multivitamins. The patient reports feeling well with her current medications, no issues with pravastatin, and excellent control of depression symptoms with sertraline. The patient has recently relocated to [place] and will start seeing a new provider in June. She requires a refill on her medications until her appointment, as the current supply will run out before July 08. [facility] Medical History Impaired fasting glucose Screening for lung cancer Osteoporosis Depression, major, in remission Smoker unmotivated to quit Essential hypertension Dyslipidemia Surgical History History of surgery on arm Hx of colonoscopy History of tubal ligation Family History Father Lymphoma Myocardial infarction HTN (hypertension) Mother Rheumatoid arthritis HTN (hypertension) COPD (chronic obstructive pulmonary disease) Hyperlipidemia Brother Myocardial infarction Depression CVD (cardiovascular disease) Unknown family medical history Son No problems noted. Daughter No problems noted. Family/Other Mental health disorder Social History Housing: House Alcohol intake: current Patient Tobacco Use Status: Current everyday Tobacco user Cigarette Packs Per Day: 0 Cigarettes Per Day: 10 e-Cigarette/Vaping Use: Never Used service: No Current occupational status: employed Cognitive needs: No Hearing needs: No Vision needs: Yes Questionnaire PHQ-9 Over the last 2 weeks, how often have you been bothered by any of the following problems? 1. Little interest or pleasure in doing things: not at all 2. Feeling down, depressed, or hopeless: not at all 3. Trouble falling or staying asleep, or sleeping too much: not at all 4. Feeling tired or having little energy: not at all 5. Poor appetite or overeating: not at all 6. Feeling bad about yourself - or that you are a failure or have let yourself or your family down: not at all 7. Trouble concentrating on things, such as reading the newspaper or watching television: not at all 8. Moving or speaking so slowly that other people could have noticed. Or the opposite - being so fidgety or restless that you have been moving around a lot more than usual: not at all 9. Thoughts that you would be better off or of hurting yourself in some way: not at all Total score: 0 Depression Screening Interpretation: Negative (controlled on sertraline) Depression Screening Done: Yes 60067 - PHQ-9 Billing: Yes Source: Developed by Drs. Joseph Gamez, Anna Downs, Luther Smith and colleagues, with an educational dexter from [employer]. Thrive Questionnaire Date Thrive assessed: 03/16/24 I am a: Patient What is your living situation today?: I have a steady place to live Within the past 12 months, did the food you bought not last and you didn't have the money to get more?: Never true Within the past 12 months, did you worry whether your food would run out before you got money to buy more?: Never true Do you have trouble paying for medicines?: No Do you have trouble getting transportation to medical appointments?: No Do you have trouble paying your heating and electricity bill?: No Do you have trouble taking care of your child, family member or friend?: No Do you have trouble with day-to-day activities such as bathing, preparing meals, shopping, managing finances, etc.?: No Are you currently unemployed and looking for a job?: No Are you interested in more education?: No Please select the resources that you would like help with: None Currently or been in a relationship where the following occur: No concerns reported THRIVE Score: 0 CINDY-7 AMB Questionnaire CINDY-7 Date CINDY - 7 assessed: 03/18/23 Source: Developed by Drs. Joseph Gamez, Anna Downs, Luther Smith and colleagues, with an educational dexter from [employer]. Review of Systems Const Denies body aches, Denies fatigue, Denies headache(s) and Denies weakness Eyes Denies change in vision ENT Denies dizziness, Denies headache(s) and Denies nasal congestion Card Denies chest pain, Denies lightheadedness, Denies palpitations and Denies dyspnea Resp Denies chest congestion, Denies cough, Denies dyspnea and Denies wheezing GI Denies abdominal pain, Denies change in bowel habits and Denies heartburn Denies urinary frequency, Denies dysuria and Denies urinary urgency Musc Denies back pain, Denies arthralgias, Denies joint swelling, Denies muscle cramp s and Denies muscle weakness Neuro Denies dizziness, Denies headache(s) and Denies weakness Psych Reports no additional complaints Endo Denies fatigue, Denies polydipsia, Denies polyuria and Denies palpitations Aller/Immun Denies seasonal rhinorrhea and Denies wheezing Physical exam (Primary Care) Tobacco/Smoking Status: Tobacco use Status Tobacco use date assessed 03/26/24 03/26/24 10:49 Patient Tobacco Use Status Current everyday Tobacco 03/26/24 10:49 e-Cigarette/Vaping Use Never Used 03/26/24 10:49 PHQ-9: PHQ-9 Score PHQ-9: Total score 0 03/27/24 02:15 Depression Screening Interpretation: Negative (controlled on sertraline) Thrive Assessment: Date of Thrive Assessment Date Thrive assessed 03/16/24 03/26/24 10:49 Currently or been in a relationship where the following occur: No concerns reported Telehealth Telehealth Telehealth Platform: [employer] Location of provider rendering services: practice address Location of patient: address on file Patient Identification confirmed using: Name, : Yes Telehealth method: video Patient verbally consented to treatment: Yes Patient verbally consented to billing insurance company: Yes Patient informed of any privacy concerns related to visit: Yes Minutes spent on Phone/Video with Pt.: 15 Coding Level of Care Code Tele Est Pt Level 4 (58997) Complex EM visit Add On G2211 Diagnoses Impaired fasting glucose R73.01 Depression, major, in remission F32.5 Essential hypertension I10 Dyslipidemia E78.5 Additional Codes PHQ-9 - 19729 - PHQ-9 Billing: Yes ([id number]) Assessment & Plan Assessment & Plan (1) Impaired fasting glucose: Code(s): R73.01 - Impaired fasting glucose Category: Medical (2) Depression, major, in remission: Code(s): F32.5 - Major depressive disorder, single episode, in full remission Category: Medical (3) Essential hypertension: Code(s): I10 - Essential (primary) hypertension Category: Medical (4) Dyslipidemia: Code(s): E78.5 - Hyperlipidemia, unspecified Category: Medical Plan 1. Hyperlipidemia: - Maintain lifestyle modifications for lipid control. 2. Hypertension: - Monitor blood pressure at home and report any significant changes. 3. Depression: - Encourage ongoing mental health wellness practices. Rx Refills: - Provided a three-month prescription refill for all current medications, which includes pravastatin, metoprolol, hydrochlorothiazide, and sertraline, to be filled at [facility]. Follow-Up: - Patient advised to attend the scheduled appointment with the new provider in June for continued management and to have blood work conducted at that visit. Medications: Refilled metoprolol tartrate 50 mg PO BID 180 tabs 0RF hydrochlorothiazide 25 mg PO DAILY 90 tabs 1RF sertraline 50 mg PO DAILY 90 tabs 1RF metoprolol tartrate 50 mg PO BID 180 tabs 1RF pravastatin 80 mg PO BEDTIME 90 tabs 1RF E78.5 - Hyperlipidemia, unspecified
== END 2024-03-26 14:16 | disposition home or self-care (01) ==
LOC: HO.HMCC 10:50
PROVIDERS: PCP Internal Medicine; Visit Provider Internal Medicine
DX: R73.01 Impaired fasting glucose (principal); F32.5 Major depressive disorder, single episode, in full remission; I10 Essential (primary) hypertension; E78.5 Hyperlipidemia, unspecified

== ENCOUNTER → 2024-03-26 10:50 | Outpatient (BNVA) | payer OTHER, SELFPAY | PROVIDERS: PCP Internal Medicine; Visit Provider Internal Medicine | DX: R73.01 Impaired fasting glucose (principal); F32.5 Major depressive disorder, single episode, in full remission; E78.5 Hyperlipidemia, unspecified; I10 Essential (primary) hypertension | CPT/HCPCS: 96127 ==